=== PATIENT | female | born 1985 | race Caucasian/White ===

== ENCOUNTER → 2017-07-14 11:31 | Outpatient (CLI) | payer OTHER, SELFPAY ==
[2017-07-15 10:29] LABS: Insulin 20.1 mU/L (2.6-37.6)
[2017-07-17 12:06] LABS: Testosterone, % Free 1.97 % (0.50-2.80); Testosterone, Free 0.63 ng/dL (0.10-0.85); Testosterone, Total 32 ng/dL (8-48)
[2017-07-18 11:21] LABS: DHEA Sulfate 172.5 ug/dL (84.8-378.0)
== END ==
PROVIDERS: Family Provider Family Medicine; PCP Family Medicine; Visit Provider Family Medicine
DX: E28.2 Polycystic ovarian syndrome (principal)
CPT/HCPCS: 36415; 82627; 83525; 84402; 84403; 82626

== ENCOUNTER → 2018-03-20 11:56 | Outpatient (CLI) | payer OTHER, SELFPAY ==
[2018-03-20 15:32] LABS: AST(SGOT) 23 U/L (15-37); Alanine Aminotransfer ALT/SGPT 47 U/L (13-56); Albumin, Serum 3.9 g/dL (3.2-5.0); Alkaline Phosphatase 68 U/L (45-117); Anion Gap 10 (5-15); BUN 11 mg/dL (7-18); Calcium,Total 9.3 mg/dL (8.5-10.1); Chloride 103 mmol/L (98-107); Creatinine, Serum 0.91 mg/dL (0.55-1.02); EST Glomerular Filtration Rate 76 mL/min (>60); Est Glom Filt Rate - Afr Amer 92 mL/min (>60); Globulin 4.1 g/dL (2.2-4.2); Glucose 79 mg/dL (74-106); Potassium 3.8 mmol/L (3.5-5.1); Sodium Level 139 mmol/L (136-145); Vitamin D,25 Hydroxy 20.9 ng/mL (29.95-100.01)
== END ==
PROVIDERS: Family Provider Family Medicine; PCP Family Medicine; Visit Provider Family Medicine
DX: Z51.81 Encounter for therapeutic drug level monitoring (principal); E55.9 Vitamin D deficiency, unspecified
CPT/HCPCS: 36415; 80053; 82306

== ENCOUNTER → 2018-12-29 11:30 | Outpatient (CLI) | payer OTHER, SELFPAY ==
[2018-12-29 16:06] LABS: Vitamin D,25 Hydroxy 48.8 ng/mL (29.95-100.01)
[2018-12-29 16:13] LABS: AST(SGOT) 19 U/L (15-37); Alanine Aminotransfer ALT/SGPT 25 U/L (13-56); Albumin, Serum 3.9 g/dL (3.2-5.0); Alkaline Phosphatase 77 U/L (45-117); Anion Gap 7 (5-15); BUN 14 mg/dL (7-18); BUN/Creat Ratio 16.4 RATIO (10-20); Chloride 104 mmol/L (98-107); Creatinine, Serum 0.85 mg/dL (0.55-1.02); EST Glomerular Filtration Rate 82 mL/min (>60); Est Glom Filt Rate - Afr Amer 99 mL/min (>60); Free T3 2.7 pg/mL (2.18-3.98); Glucose 72 mg/dL (74-106); Potassium 4.1 mmol/L (3.5-5.1); Protein, Total 7.9 g/dL (6.4-8.2); Sodium Level 136 mmol/L (136-145); T4 Free Direct 1.13 ng/dL (0.76-1.46); Thyroid Stim Hormone (TSH) 2.85 uIU/mL (0.358-3.74)
[2019-01-01 14:07] LABS: Thyroid Peroxidase AB 161 IU/mL (0-34)
[2019-01-01 17:38] LABS: Thyroglobulin Antibody 4.8 IU/mL (0.0-0.9)
== END ==
PROVIDERS: Family Provider Family Medicine; PCP Family Medicine; Visit Provider Family Medicine
DX: Z51.81 Encounter for therapeutic drug level monitoring (principal); E55.9 Vitamin D deficiency, unspecified; E03.9 Hypothyroidism, unspecified; R53.83 Other fatigue
CPT/HCPCS: 36415; 80053; 82306; 84439; 84443; 84481; 86376; 86800

== ENCOUNTER → 2019-04-01 14:05 | Outpatient (CLI) | payer OTHER, SELFPAY ==
[2019-04-01 12:13] VITALS: BMI 42.7
[2019-04-01 14:08] LABS: Bacteria 0 SEEN /hpf (None Seen); Mucous, Urine 0 SEEN /hpf (<or=2+); Red Blood Cells-Urine 0 SEEN /hpf (0-5); Squamous Epithelial Cells - UA 0 SEEN /hpf (5-10); White Blood Cells 0 SEEN /hpf (0-5)
[2019-04-01 14:20] LABS: Color, Urine Yellow (Yellow); Glucose, Dipstick Normal (Normal); Ketone-Dipstick Negative (Negative); Leukocyte Esterase-Dipstick Negative /ul (Negative); Nitrite-Dipstick Negative (Negative); Occult Blood-Urine Negative /ul (Negative); Protein-Dipstick Negative (Negative); Urine Bilirubin Dipstick Negative (Negative); Urine Clarity Clear (Clear); Urine Urobilinogen Normal (Normal); Urine pH 6.5 (5.0 - 8.0)
== END ==
PROVIDERS: Family Provider Family Medicine; PCP Family Medicine; Referring Provider Physician Assistant Medical; Visit Provider Physician Assistant Medical
DX: R35.0 Frequency of micturition (principal)
CPT/HCPCS: 81001; 87086; 87088

== ENCOUNTER 2019-04-05 01:27 | Emergency (ER) | payer OTHER, SELFPAY ==
[2019-04-01 12:13] VITALS: BMI 42.7
[2019-04-05 01:29] VITALS: BP 181/127; PULSE 118; RESP 16; TEMP 36.7; O2SAT 98; BMI 46.8
--- NOTE | 2019-04-05 01:40 | ED.DCSUM_ITS ---
History of Present Illness Chief Complaint: Nausea/Vomiting/Diarrhea Informant: Patient Narrative: Stated she started having diarrhea yesterday multiple episodes throughout the day. She had vomiting since 1 PM today. Approximately 10 episodes of nonbloody emesis today. She has had sick contacts at work with similar symptoms. Denies any bad food exposures or recent antibiotics. No fevers or chills. She has no abdominal pain. No blood in her stool. Comes in for antibiotics and antieme tics. She is been using Imodium intermittently yesterday but none today. Past Medical History - Allergies and Home Meds Allergies/Adverse Reactions: Allergies No Known Allergies Allergy (Unverified 04/01/19 12:14) Primary Care Physician: Nadja Yadav DO [Primary Care Provider] - Prior records reviewed: Yes Past Medical History: - - PCOS Surgical History: no surgical history Lives: With Family Smoking Status: Never smoker Alcohol: None Drugs: None Review of Systems General: Denies: Chills, Fever, Sweats Eyes: Denies: Visual changes - bilaterally, Diplopia ENT: Denies: Rhinorrhea, Sore throat Cardiovascular: Denies: Chest pain, Palpitations Respiratory: Denies: Dyspnea, Cough, Dyspnea on exertion Gastrointestinal: Reports: Nausea, Vomiting, Diarrhea. Denies: Abdominal pain, Melena, Hematochezia Genitourinary: Denies: Dysuria, Hematuria, Frequency Musculoskeletal: Denies: Back pain, Extremity Pain Skin: Denies: Rash, Wounds Neurological: Denies: Headache, Weakness, Numbness Physical Exam Vital Signs/Narrative: Vital Signs Temp Pulse Resp BP Pulse Ox 04/05/19 01:29 98.1 F 118 H 16 181/127 H 98 General: Well nourished, Well developed, No Acute Distress Head: Normocephalic, Atraumatic Eyes: Perrl, EOMI ENT: Moist mucous membranes, No rhinorrhea Neck: Supple, Nontender Cardiovascular: Regular rhythm, No murmurs, Tachycardia. Negative for: Regular rate Respiratory: No distress, CTA bilaterally, Chest nontender Abdomen: Soft, Nontender, Nondistended, Normal bowel sounds Back: Nontender, Normal Inspection Extremities: Nontender, No edema Skin: Normal color, No rash Neurological: Alert, Oriented x3, Cranial nerves II-XII grossly intact, Normal Strength, Normal Sensation Psychological: Normal affect, Normal Mood Diagnostic/Tx/Re-eval - Medical Decision Making Patient abdomen completely benign. Given IV fluids. Given Zofran Imodium and electrolytes obtained. Patient felt much better after treatment. Lab work shows no major abnormalities. She tolerated p.o. challenge. Given Zofran for home. Will use Imodium. At this time I feel this is viral in nature and will have to run its course over the next few days. I do not feel she needs imaging or further lab work. She is nontoxic. We will follow-up as an outpatient ED Disposition - Plan for ED Patient: Disposition: Psychiatric Hospital or Unit Diagnosis: Vomiting and diarrhea Instructions: VOMITING AND DIARRHEA, Nonspecific (Adult) Prescriptions: Ondansetron [Zofran Odt] 4 mg PO Q8H PRN PRN #10 tab PRN Reason: Nausea Prescription Printed Referrals: Nadja Yadav DO [Primary Care Provider] -
[2019-04-05] MEDS: 0.9% Normal Saline 1,000 ML 1000 ML IV (01:55)
[2019-04-05] MEDS: Ondansetron 4 MG/2 ML Vial IV (01:55)
[2019-04-05 02:26] LABS: Anion Gap 9 (5-15); BUN 11 mg/dL (7-18); BUN/Creat Ratio 15.2 RATIO (10-20); Calcium,Total 9.1 mg/dL (8.5-10.1); Chloride 108 mmol/L (98-107); Creatinine, Serum 0.73 mg/dL (0.55-1.02); EST Glomerular Filtration Rate 99 mL/min (>60); Est Glom Filt Rate - Afr Amer 119 mL/min (>60); Estimated Creatinine Clearance 83.49 ml/min; Glucose 119 mg/dL (74-106); Potassium 3.8 mmol/L (3.5-5.1); Sodium Level 139 mmol/L (136-145)
[2019-04-05] MEDS: Loperamide 2 MG Capsule 4 MG PO (02:43)
[2019-04-05 03:02] VITALS: BP 174/107; PULSE 72; RESP 18
== END 2019-04-05 03:08 | disposition home or self-care (01) ==
PROVIDERS: Emergency Provider Emergency Medicine; Family Provider Family Medicine; PCP Family Medicine
DX: R11.2 Nausea with vomiting, unspecified (principal); R19.7 Diarrhea, unspecified
CPT/HCPCS: 80048; 99284; J7030; A4216; J2405

== ENCOUNTER → 2020-04-18 14:38 | Outpatient (CLI) | payer OTHER, SELFPAY ==
[2020-04-18 11:50] VITALS: BMI 48.7
== END ==
PROVIDERS: PCP Family Medicine; Referring Provider Physician Assistant Surgical; Visit Provider Physician Assistant Surgical
DX: Z20.828 Contact with and (suspected) exposure to other viral communicable diseases (principal)
CPT/HCPCS: 87635; U0003

== ENCOUNTER → 2020-04-21 18:05 | Outpatient (CLI) | payer OTHER, SELFPAY ==
[2020-04-18 11:50] VITALS: BMI 48.7
== END ==
PROVIDERS: PCP Family Medicine; Referring Provider Family Medicine; Visit Provider Family Medicine
DX: R05 Cough (principal); Z20.828 Contact with and (suspected) exposure to other viral communicable diseases
CPT/HCPCS: 87635; C9803; U0003

== ENCOUNTER → 2020-08-23 10:29 | Outpatient (CLI) | payer OTHER, SELFPAY ==
[2020-04-18 11:50] VITALS: BMI 48.7
[2020-08-23 11:10] LABS: Erythrocyte Sedimentation Rate 7 mm/hr (0-30)
[2020-08-23 11:13] LABS: Absolute Lymphocyte Count 2.38 X10^3/uL (0.83-4.51); Basophil# 0.07 X10^3/uL; Basophil% 0.5 % (0-1); Eosinophil# 0.06 X10^3/uL; Eosinophils% 0.4 % (0-5); Hematocrit 48.8 % (37-47); Hemoglobin 16.3 g/dL (12.0-15.0); Lymphocyte # 2.38 X10^3/ul (4.0); Lymphocyte % 16.6 % (19-41); Mean Corp Hgb Conc 33.4 g/dL (32-36); Mean Corpuscular Hgb 29.6 pg (27.0-32.0); Mean Corpuscular Volume 88.7 fL (81-99); Mean Platelet Vol. 10.7 fl (6.2-12.0); Monocyte# 0.81 X10^3/uL; Monocyte% 5.6 % (0-10); NRBC Flagged by Analyzer 0 % (0-5); Neutrophil # 10.96 X10^3/uL (2.7-7.7); Neutrophil % 76.3 % (47-70); Platelet Count 489 K/mm3 (150-450); RBC Distribution Width SD 39.3 fl (35.1-43.9); White Blood Count 14.4 K/mm3 (4.4-11.0)
[2020-08-23 11:19] LABS: AST(SGOT) 11 U/L (15-37); Alanine Aminotransfer ALT/SGPT 19 U/L (13-56); Alkaline Phosphatase 79 U/L (45-117); Anion Gap 5 (5-15); BUN 11 mg/dL (7-18); BUN/Creat Ratio 10.7 RATIO (10-20); CRP < 2.90 mg/L (0.0-3.0); Calcium,Total 9.3 mg/dL (8.5-10.1); Chloride 106 mmol/L (98-107); Creatinine, Serum 1.03 mg/dL (0.55-1.02); EST Glomerular Filtration Rate 65 mL/min (>60); Est Glom Filt Rate - Afr Amer 79 mL/min (>60); Globulin 4.2 g/dL (2.2-4.2); Glucose 100 mg/dL (74-106); Lipase 116 U/L (73-393); Protein, Total 8.2 g/dL (6.4-8.2); Sodium Level 138 mmol/L (136-145)
== END ==
PROVIDERS: PCP Family Medicine; Visit Provider Family Medicine
DX: R19.7 Diarrhea, unspecified (principal); R10.9 Unspecified abdominal pain
CPT/HCPCS: 36415; 80053; 83690; 85025; 85652; 86140

== ENCOUNTER 2020-08-27 10:21 | Emergency (ER) | payer OTHER, SELFPAY ==
[2020-04-18 11:50] VITALS: BMI 48.7
[2020-08-27 10:23] VITALS: BP 161/124; PULSE 98; RESP 17; TEMP 36.8; O2SAT 97; BMI 48.2
[2020-08-27 10:32] VITALS: BP 170/130; PULSE 92; RESP 18; O2SAT 97
--- NOTE | 2020-08-27 10:42 | ED.VIS.GEN ---
History of Present Illness Chief Complaint: Nausea/Vomiting Informant: Patient Onset: Days Context: Gradual Onset Timing: Waxes and wanes Current Severity: Moderate Maximum Severity: Moderate Narrative: Presents with a 1 week history of nausea, vomiting, diarrhea. She reports a constant aching sensation in her abdomen. She was seen by her PCP last week and had blood work obtained. She had a negative Covid test. She does state just prior to the onset of these symptoms she did get a Kenalog shot. She is had these in the past without difficulty. She is complaining of some chills but no fever. Her PCP prescribed omeprazole last week and the just added her on Flagyl 2 days ago due to concerns for possible bacterial diarrhea. Patient states today at work her heart rate was constantly 100 and sometimes fluctuating higher than that. She denies any prior abdominal surgeries. She denies possibility of . Past Medical History - Allergies and Home Meds Allergies/Adverse Reactions: Allergies No Known Allergies Allergy (Verified 08/27/20 10:23) Primary Care Physician: Nadja Yadav DO [Primary Care Provider] - Surgical History: no surgical history Smoking Status: Never smoker Review of Systems General: Reports: Chills. Denies: Fever Eyes: Denies: Visual changes - bilaterally ENT: Denies: Bilateral ear pain Cardiovascular: Denies: Chest pain, Palpitations Respiratory: Denies: Dyspnea, Cough Gastrointestinal: Reports: Abdominal pain, Nausea, Vomiting, Diarrhea Genitourinary: Denies: Dysuria Musculoskeletal: Denies: Swelling, Extremity Pain Skin: Denies: Rash Neurological: Reports: Headache Endocrine: Denies: Polyuria, Polydipsia Hematologic: Denies: Easy bruising, Easy bleeding Allergy: Denies: Uticaria Physical Exam Vital Signs/Narrative: Vital Signs Temp Pulse Resp BP Pulse Ox 08/27/20 10:32 92 18 170/130 H 97 08/27/20 10:23 98.3 F 98 17 161/124 H 97 Inital Vital Signs reviewed: Yes General: Well nourished, Well developed Head: Normocephalic ENT: No rhinorrhea Neck: Supple Cardiovascular: Regular rate, Regular rhythm Respiratory: No distress, CTA bilaterally Abdomen: Soft, Nontender, Hypoactive bowel sounds Extremities: Nontender Skin: Normal color Neurological: Alert, Oriented x3 Psychological: Normal affect Diagnostic/Tx/Re-eval Laboratory Results 08/27/20 08/27/20 08/27/20 11:00 11:00 11:00 WBC 14.5 H RBC 5.26 Hgb 15.8 H Hct 46.0 MCV 87.5 MCH 30.0 MCHC 34.3 RDW Std Deviation 38.2 RDW Coeff of Sandra 11.9 Plt Count 412 MPV 10.7 Immature Gran % (Auto) 0.600 Neut % (Auto) 77.7 H Lymph % (Auto) 14.0 L [place] % (Auto) 6.7 Eos % (Auto) 0.4 Baso % (Auto) 0.6 Absolute Neuts (auto) 11.3 H Absolute Lymphs (auto) 2.04 Nucleated RBC % 0 Sodium 137 Potassium 3.7 Chloride 107 Carbon Dioxide 25.0 Anion Gap 5 BUN 10 Creatinine 0.98 Estim Creat Clear Calc 61.61 Est GFR (MDRD) Af Amer 84 Est GFR (MDRD) Non-Af 69 BUN/Creatinine Ratio 10.2 Glucose 88 Calcium 9.1 Total Bilirubin 0.60 Direct Bilirubin 0.19 AST 8 L ALT 21 Alkaline Phosphatase 76 Total Protein 7.9 Albumin 3.8 Globulin 4.1 Lipase 148 Serum , Qual NEGATIVE Urine Color Urine Clarity Urine pH Ur Specific [place] Urine Protein Urine Glucose (UA) Urine Ketones Urine Occult Blood Urine Nitrite Urine Bilirubin Urine Urobilinogen Ur Leukocyte Esterase Urine RBC Urine WBC Ur Squamous Epith Cells Urine Bacteria Urine Mucus 08/27/20 11:00 WBC RBC Hgb Hct MCV MCH MCHC RDW Std Deviation RDW Coeff of Sandra Plt Count MPV Immature Gran % (Auto) Neut % (Auto) Lymph % (Auto) [place] % (Auto) Eos % (Auto) Baso % (Auto) Absolute Neuts (auto) Absolute Lymphs (auto) Nucleated RBC % Sodium Potassium Chloride Carbon Dioxide Anion Gap BUN Creatinine Estim Creat Clear Calc Est GFR (MDRD) Af Amer Est GFR (MDRD) Non-Af BUN/Creatinine Ratio Glucose Calcium Total Bilirubin Direct Bilirubin AST ALT Alkaline Phosphatase Total Protein Albumin Globulin Lipase Serum , Qual Urine Color Yellow Urine Clarity Sl. Cloudy Urine pH 6.0 Ur Specific [place] 1.010 Urine Protein Negative Urine Glucose (UA) Normal Urine Ketones Negative Urine Occult Blood 10 H Urine Nitrite Negative Urine Bilirubin Negative Urine Urobilinogen Normal Ur Leukocyte Esterase 100 H Urine RBC 0 SEEN Urine WBC 0-5 SEEN Ur Squamous Epith Cells 0-5 SEEN Urine Bacteria 0 SEEN Urine Mucus 0 SEEN - Medical Decision Making Patient was given Zofran and Bentyl along with a liter of IV fluids. On repeat evaluation symptoms are improved. White count remains elevated at 14, similar to labs last week. This again may be secondary to her recent Kenalog injection. Renal function is actually improved when compared to prior. Urinalysis is clear. test negative. Covid PCR was sent and is still pending at this time. Patient was advised if it is positive she would receive a phone call. At this time we will discharge patient with prescription for Zofran and Bentyl. She will continue the Flagyl that her PCP had written for her. She was not able to provide a stool sample while here. ED Disposition - Plan for ED Patient: Disposition: Home or Assisted Living Diagnosis: Gastroenteritis Instructions: ED Gastroenteritis, Bacterial (Adult) Prescriptions: Dicyclomine HCl [Bentyl] 20 mg PO TIDAC PRN #20 capsule PRN Reason: Pain Score 4-5 Transmission Status: [facility] Ondansetron [Zofran Odt] 4 mg PO Q8H PRN PRN #10 tablet PRN Reason: Nausea Transmission Status: Pending to [facility] Referrals: Nadja Yadav DO [Primary Care Provider] - 1 Week
[2020-08-27] MEDS: Dicyclomine 10 MG Capsule 20 MG PO (11:11)
[2020-08-27] MEDS: 0.9% Normal Saline 1,000 ML 1000 ML IV (11:12)
[2020-08-27] MEDS: Ondansetron 4 MG/2 ML Vial IV (11:13)
[2020-08-27 11:15] LABS: Bacteria 0 SEEN /hpf (None Seen); Mucous, Urine 0 SEEN /hpf (<or=2+); Red Blood Cells-Urine 0 SEEN /hpf (0-5)
[2020-08-27 11:16] LABS: Color, Urine Yellow (Yellow); Glucose, Dipstick Normal (Normal); Ketone-Dipstick Negative (Negative); Leukocyte Esterase-Dipstick 100 /ul (Negative); Nitrite-Dipstick Negative (Negative); Occult Blood-Urine 10 /ul (Negative); Protein-Dipstick Negative (Negative); Urine Bilirubin Dipstick Negative (Negative); Urine Clarity Sl. Cloudy (Clear); Urine Urobilinogen Normal (Normal)
[2020-08-27 11:17] LABS: Absolute Lymphocyte Count 2.04 X10^3/uL (0.83-4.51); Absolute Neutrophil Count 11.3 X10^3/uL (2.0-7.7); Basophil# 0.08 X10^3/uL; Basophil% 0.6 % (0-1); Eosinophil# 0.06 X10^3/uL; Eosinophils% 0.4 % (0-5); Hemoglobin 15.8 g/dL (12.0-15.0); Lymphocyte # 2.04 X10^3/ul (4.0); Mean Corp Hgb Conc 34.3 g/dL (32-36); Mean Corpuscular Volume 87.5 fL (81-99); Mean Platelet Vol. 10.7 fl (6.2-12.0); Monocyte# 0.97 X10^3/uL; Monocyte% 6.7 % (0-10); NRBC Flagged by Analyzer 0 % (0-5); Neutrophil # 11.29 X10^3/uL (2.7-7.7); Neutrophil % 77.7 % (47-70); Platelet Count 412 K/mm3 (150-450); RBC Distribution Width CV 11.9 % (11.6-14.6); RBC Distribution Width SD 38.2 fl (35.1-43.9); Red Blood Count 5.26 M/mm3 (4.2-5.4); White Blood Count 14.5 K/mm3 (4.4-11.0)
[2020-08-27 11:22] LABS: Squamous Epithelial Cells - UA 0-5 SEEN /hpf (5-10); White Blood Cells 0-5 SEEN /hpf (0-5)
[2020-08-27 11:34] LABS: AST(SGOT) 8 U/L (15-37); Alanine Aminotransfer ALT/SGPT 21 U/L (13-56); Albumin, Serum 3.8 g/dL (3.2-5.0); Alkaline Phosphatase 76 U/L (45-117); Anion Gap 5 (5-15); BUN 10 mg/dL (7-18); BUN/Creat Ratio 10.2 RATIO (10-20); Bilirubin, Direct 0.19 mg/dL (0.00-0.30); Calcium,Total 9.1 mg/dL (8.5-10.1); Chloride 107 mmol/L (98-107); Creatinine, Serum 0.98 mg/dL (0.55-1.02); EST Glomerular Filtration Rate 69 mL/min (>60); Est Glom Filt Rate - Afr Amer 84 mL/min (>60); Estimated Creatinine Clearance 61.61 ml/min; Globulin 4.1 g/dL (2.2-4.2); Glucose 88 mg/dL (74-106); Lipase 148 U/L (73-393); Potassium 3.7 mmol/L (3.5-5.1); Protein, Total 7.9 g/dL (6.4-8.2); Sodium Level 137 mmol/L (136-145)
[2020-08-27 11:35] LABS: Internal QC Validated? YES +Cl - CLEAR BKGD; Pregnancy, Serum, hCG Quali. NEGATIVE Negative
[2020-08-27 13:11] VITALS: BP 147/102; PULSE 74; RESP 16; O2SAT 100
[2020-08-27] MEDS: 0.9% Normal Saline 1,000 ML 150 ML IV (13:11)
[2020-08-27 13:46] VITALS: BP 161/106; PULSE 84; RESP 16; O2SAT 100
== END 2020-08-27 13:51 | disposition home or self-care (01) ==
PROVIDERS: Emergency Provider Emergency Medicine; PCP Family Medicine
DX: K52.9 Noninfective gastroenteritis and colitis, unspecified (principal)
CPT/HCPCS: 80048; 80076; 81001; 83690; 84703; 85025; 87635; 96361; 96374; 99284; J7030; A4216; J2405; U0002

== ENCOUNTER → 2020-12-30 13:27 | Outpatient (CLI) | payer OTHER, SELFPAY ==
[2020-12-06 08:38] VITALS: BMI 48.2
[2020-12-30 13:47] LABS: Absolute Lymphocyte Count 1.94 X10^3/uL (0.83-4.51); Absolute Neutrophil Count 9.4 X10^3/uL (2.0-7.7); Basophil# 0.05 X10^3/uL; Basophil% 0.4 % (0-1); Eosinophil# 0.05 X10^3/uL; Eosinophils% 0.4 % (0-5); Hematocrit 47.7 % (37-47); Hemoglobin 15.8 g/dL (12.0-15.0); Lymphocyte # 1.94 X10^3/ul (0.83-4.51); Lymphocyte % 15.9 % (19-41); Mean Corp Hgb Conc 33.1 g/dL (32-36); Mean Corpuscular Hgb 29.6 pg (27.0-32.0); Mean Corpuscular Volume 89.3 fL (81-99); Mean Platelet Vol. 10.9 fl (6.2-12.0); Monocyte# 0.63 X10^3/uL; Monocyte% 5.2 % (0-10); NRBC Flagged by Analyzer 0 % (0-5); Neutrophil # 9.42 X10^3/uL (2.7-7.7); Neutrophil % 77.4 % (47-70); Platelet Count 390 K/mm3 (150-450); RBC Distribution Width SD 39.4 fl (35.1-43.9); Red Blood Count 5.34 M/mm3 (4.2-5.4); White Blood Count 12.2 K/mm3 (4.4-11.0)
== END ==
PROVIDERS: PCP Family Medicine; Referring Provider Ophthalmology; Visit Provider Ophthalmology
DX: H35.61 Retinal hemorrhage, right eye (principal)
CPT/HCPCS: 36415; 85025

== ENCOUNTER 2021-03-14 18:43 | Emergency (ER) | payer OTHER, SELFPAY ==
[2021-03-14 18:44] VITALS: BP 166/115; PULSE 116; RESP 18; TEMP 36.4; O2SAT 99; BMI 49.9
--- NOTE | 2021-03-14 19:14 | ED.RN ---
PT ALREADY RECEIVED [employer] VACCINES
--- NOTE | 2021-03-14 19:39 | EX.ED.DYSGE1 ---
HPI History of Present Illness Chief Complaint: Vision Prob Informant: patient and family Narrative Narrative: 35-year-old female states that around 4:00 this afternoon she began to have squiggly lines in her vision that were of various colors. She states that they have improved and she now has a frontal headache. She denies any arm leg or speech symptoms. Patient has been working on getting her blood pressure down.No nausea or vomiting. [facility] Medical History GERD (gastroesophageal reflux disease) Hypertension Home Medications cetirizine 10 mg capsule 10 mg PO DAILY 04/01/19 [History Last Taken Unknown] metformin 500 mg tablet 500 mg PO BID #60 tab 04/01/19 [History Last Taken Unknown] spironolactone 25 mg tablet 25 mg PO DAILY #60 tab 04/01/19 [History Last Taken Unknown] metoprolol succinate 100 mg PO DAILY 03/14/21 [History Last Taken Unknown] Allergy/AdvReac Type Severity Reaction Status Date / Time No Known Allergies Allergy Verified 03/14/21 18:47 Social History (Updated 03/14/21 @ 19:[address] Kyle Lopez DO) Smoking Status: Never smoker substance use type: does not use ROS ROS ED Constitutional Constitutional ED: Denies chills or weight loss Eyes Eyes: Reports other Details: Visual disturbance ; Denies blurry vision, change in vision or diplopia ENT ENT ED: Denies ear pain, rhinorrhea or sore throat Cardiovascular Cardiovascular: Denies chest pain, orthopnea, palpitations or racing heartbeat Respiratory/Chest Respiratory/Chest: Denies cough, dyspnea or orthopnea Gastrointestinal Gastrointestinal: Denies abdominal pain, diarrhea, nausea or vomiting Genitourinary Genitourinary ED: Denies dysuria, hematuria or urinary frequency Musculoskeletal Musculoskeletal: Denies arthralgias or myalgias Integumentary Denies abscess or rash Neurologic Neurologic: Reports headache(s); Denies weakness Psychiatric Psychiatric: Denies anxiety, depression, suicidal ideation or suicidal thoughts Endocrine Endocrinology: Denies polydipsia, polyphagia or polyuria Allergic/Immunologic Allergic/Immunologic ED: Denies mouth swelling, tongue swelling or urticaria EXAM Physical Exam Const Vital Signs: 03/14/21 18:44 Temperature 97.5 F L Temperature Source Temporal Pulse Rate 116 H Respiratory Rate 18 Blood Pressure 166/115 H Blood Pressure Mean 132 Pulse Ox 99 Oxygen Delivery Method Room Air Positive well nourished, well developed and obese General Appearance ED: well developed Nutritional Appearance: obese HEENT Reports normocephalic, head/scalp atraumatic, TM's clear and moist mucous membranes Negative for trauma Tympanic Membrane ED: Yes TM's clear Eyes PERRL and EOMs intact bilaterally Eyes Narrative: No photophobia Neck no lymphadenopathy, supple and no JVD Resp normal respiratory effort and clear to auscultation bilaterally Cardio regular rate, regular rhythm and no murmurs GI normal to inspection, nondistended, normoactive bowel sounds and non-tender Palpation: soft Back/Spine no CVA tenderness and normal ROM Extremity normal to inspection General Extremety ED: Negative for edema General Extremity: Negative for edema Neuro oriented x3 and CN's II-XII intact bilaterally Sensorium / Orientation: alert Motor Exam: strength 5/5 throughout Psych mental status grossly normal Mood & Affect: Negative for depressed or tearful Skin no rashes or lesions noted and no wounds MDM MDM MDM Narrative Medical decision making narrative: Patient received Toradol Reglan Benadryl. Repeat exam finds the patient to be improved. Patient will be discharged home. She has an appointment upcoming with her doctor and they should talk about her headache. Discharge Plan Triage Chief Complaint: Vision Prob ED Provider: Kyle Lopez Dx/Rx/DC Orders Clinical Impression: Migraine Instructions: ED, Migraine (Classical) Prescriptions: No Action spironolactone 25 mg tablet 25 mg PO DAILY Qty: 60 RF: 0 metformin 500 mg tablet 500 mg PO BID Qty: 60 RF: 0 All Day Allergy (cetirizine) 10 mg capsule 10 mg PO DAILY RF: 0 metoprolol succinate 25 mg tablet extended release 24 hr 100 mg PO DAILY RF: 0 Primary Care Provider: Nadja Yadav Referrals: Nadja Yadav DO [Primary Care Provider] - [facility] appointment Disposition Disposition: Home, Self Care
[2021-03-14] MEDS: DiphenhydrAMINE 50 MG/ML Syringe 25 MG IV (20:17)
[2021-03-14] MEDS: Ketorolac 15 MG/ML Vial IV (20:17)
[2021-03-14] MEDS: Metoclopramide 10 MG/2 ML Vial IV (20:17)
[2021-03-14 21:12] VITALS: BP 146/90; PULSE 98; RESP 15; O2SAT 98
== END 2021-03-14 21:14 | disposition home or self-care (01) ==
PROVIDERS: Emergency Provider Emergency Medicine; PCP Family Medicine
DX: G43.909 Migraine, unspecified, not intractable, without status migrainosus (principal); E66.9 Obesity, unspecified; I10 Essential (primary) hypertension; Z79.84 Long term (current) use of oral hypoglycemic drugs; Z79.899 Other long term (current) drug therapy
CPT/HCPCS: 96374; 96375; 99284; A4216

== ENCOUNTER → 2021-03-31 13:54 | Outpatient (CLI) | payer OTHER, SELFPAY | PROVIDERS: PCP Family Medicine; Referring Provider Family Medicine; Visit Provider Family Medicine | DX: R00.0 Tachycardia, unspecified (principal); R00.2 Palpitations | CPT/HCPCS: 93225; 93226 ==

== ENCOUNTER 2021-07-22 13:43 | Outpatient (CLI) | payer OTHER, SELFPAY ==
--- NOTE | 2021-07-22 13:49 | ECHOCS_ITS ---
Reason For Study: ARRHYTHMIA Procedure This was a 2D Doppler, Color Flow transthoracic echocardiogram. The study was technically difficult. Contrast injection was performed. Exam performed in department. Left Ventricle Normal LV size. Left ventricular systolic function is normal. The estimated ejection fraction is 55 %. Normal diastology for age. No regional wall motion abnormalities noted. Right Ventricle Normal RV size. Normal systolic function. Atria Normal left atrium. Normal right atrium. Mitral Valve Normal mitral valve. Tricuspid Valve Normal tricuspid valve. Mild (1+) tricuspid valve insufficiency. Pulmonary artery systolic pressure is 32 mmHg. Aortic Valve Trisinus/trileaflet aortic valve. Pulmonic Valve Normal pulmonic valve. Great Vessels Normal aortic root. The pulmonary artery is normal size. Normal inferior vena cava. Pericardium/Pleural No pericardial effusion. Medication 22 gauge I.V. with prn adaptor inserted into right arm. Diluted definity 1.5ml given slow IV push to enhance endocardial definition. MMode/2D Measurements & Calculations LVIDd: 4.3 cm IVSd: 0.85 cm Ao root diam: 2.9 cm LVIDs: 2.7 cm LVPWd: 0.88 cm RVDd: 3.5 cm FS: 38.0 % LAV(MOD-bp): 21.0 ml LVAd ap4: 29.2 cm2 LVAd ap2: 24.8 cm2 LAV(MOD-bp) Indexed: 9.8 ml/m2 LVLd ap4: 7.5 cm LVLd ap2: 7.3 cm LAV(MOD-sp2): 19.7 ml EDV(MOD-sp4): 95.0 ml EDV(MOD-sp2): 72.1 ml LAV(MOD-sp4): 21.8 ml EDV(sp4-el): 97.2 ml EDV(sp2-el): 71.8 ml LVAs ap4: 16.0 cm2 LVAs ap2: 13.7 cm2 LVLs ap4: 6.1 cm LVLs ap2: 5.7 cm ESV(MOD-sp4): 35.5 ml ESV(MOD-sp2): 27.4 ml ESV(sp4-el): 35.5 ml ESV(sp2-el): 28.1 ml EF(MOD-sp4): 62.6 % EF(MOD-sp2): 62.0 % EF(sp4-el): 63.5 % SV(MOD-sp4): 59.5 ml SV(MOD-sp2): 44.7 ml SV(sp4-el): 61.7 ml LA A4 area: 10.6 cm2 LA dimension(2D): 3.3 cm RA A4 area: 10.7 cm2 Doppler Measurements & Calculations MV E max buzz: 92.2 cm/sec Lat Peak E' Buzz: 16.4 cm/sec Med Peak E' Buzz: 12.9 cm/sec MV A max buzz: 68.4 cm/sec E/E' lat: 5.6 E/E' med: 7.1 MV E/A: 1.3 Ao V2 max: 191.6 cm/sec LV V1 max: 127.1 cm/sec PA V2 max: 126.0 cm/sec Ao max P.7 mmHg LV V1 max P.5 mmHg TR max buzz: 264.2 cm/sec TR max P.9 mmHg ECHO/Echo Complete W/ Contrast Interpretation Summary Normal LV size. Left ventricular systolic function is normal. The estimated ejection fraction is 55 %. Pulmonary artery systolic pressure is 32 mmHg. Contrast injection was performed. Ordering Physician: Forrest Ge Referring Physician: URSZULA CAMPOS Performed By: Summer Connell, ANMOL, RVT
== END 2021-07-22 23:59 | disposition home or self-care (01) ==
LOC: CVS 13:49
PROVIDERS: PCP Family Medicine; Referring Provider Internal Medicine Cardiovascular Disease; Visit Provider Internal Medicine Cardiovascular Disease
DX: I10 Essential (primary) hypertension (principal)
CPT/HCPCS: 93306; Q9957; A4216; C8929

== ENCOUNTER 2021-07-23 07:18 | Outpatient (CLI) | payer OTHER, SELFPAY ==
[2021-07-23 08:14] LABS: Anion Gap 5 (5-15); BUN 15 mg/dL (7-18); BUN/Creat Ratio 17.8 RATIO (10-20); Calcium,Total 8.7 mg/dL (8.5-10.1); Chloride 107 mmol/L (98-107); Creatinine, Serum 0.84 mg/dL (0.55-1.02); EST Glomerular Filtration Rate 82 mL/min (>60); Est Glom Filt Rate - Afr Amer 99 mL/min (>60); Free T3 2.7 pg/mL (2.18-3.98); Glucose 106 mg/dL (74-106); Sodium Level 139 mmol/L (136-145); Thyroid Stim Hormone (TSH) 1.89 uIU/mL (0.358-3.74)
[2021-07-30 17:07] LABS: Aldosterone, Serum 12.1 ng/dL (0.0-30.0)
[2021-07-30 18:20] LABS: Renin, Plasma 0.227 ng/mL/hr (0.167-5.380)
== END 2021-07-23 23:59 | disposition home or self-care (01) ==
LOC: LAB 07:20
PROVIDERS: PCP Family Medicine; Referring Provider Internal Medicine Cardiovascular Disease; Visit Provider Internal Medicine Cardiovascular Disease
DX: E03.9 Hypothyroidism, unspecified (principal)
CPT/HCPCS: 36415; 80048; 82088; 84244; 84439; 84443; 84481

== ENCOUNTER → 2021-11-24 | Outpatient (CLI) | payer OTHER, SELFPAY ==
[2021-11-24 11:54] LABS: ALB/GLOB Ratio 0.9 RATIO (0.9-2.4); AST(SGOT) 18 U/L (15-37); Alanine Aminotransfer ALT/SGPT 22 U/L (13-56); Albumin, Serum 3.4 g/dL (3.2-5.0); Alkaline Phosphatase 58 U/L (45-117); Anion Gap 4 (5-15); BUN 12 mg/dL (7-18); BUN/Creat Ratio 14.8 RATIO (10-20); Calcium,Total 9.6 mg/dL (8.5-10.1); Chloride 108 mmol/L (98-107); Creatinine, Serum 0.81 mg/dL (0.55-1.02); EST Glomerular Filtration Rate 86 mL/min (>60); Est Glom Filt Rate - Afr Amer 104 mL/min (>60); Globulin 3.7 g/dL (2.2-4.2); Glucose 113 mg/dL (74-106); Potassium 3.9 mmol/L (3.5-5.1); Protein, Total 7.1 g/dL (6.4-8.2); Sodium Level 139 mmol/L (136-145)
== END | disposition home or self-care (01) ==
LOC: LAB 10:38
PROVIDERS: PCP Family Medicine; Visit Provider Family Medicine
DX: R20.2 Paresthesia of skin (principal)
CPT/HCPCS: 36415; 80053; 83735

== ENCOUNTER → 2022-02-04 | Outpatient (CLI) | payer OTHER, SELFPAY ==
[2022-02-04 17:16] LABS: Free T3 2.6 pg/mL (2.18-3.98); T4 Free Direct 1.05 ng/dL (0.76-1.46); Thyroid Stim Hormone (TSH) 4.72 uIU/mL (0.358-3.74)
== END | disposition home or self-care (01) ==
LOC: LAB 16:19
PROVIDERS: PCP Family Medicine; Visit Provider Family Medicine
DX: E03.9 Hypothyroidism, unspecified (principal)
CPT/HCPCS: 36415; 84439; 84443; 84481

== ENCOUNTER → 2022-05-20 | Outpatient (CLI) | payer OTHER, SELFPAY ==
[2022-05-20 12:21] LABS: Absolute Neutrophil Count 7.7 X10^3/uL (2.0-7.7); Basophil# 0.08 X10^3/uL; Basophil% 0.7 % (0-1); Eosinophil# 0.35 X10^3/uL; Eosinophils% 2.9 % (0-5); Hematocrit 41.2 % (37-47); Hemoglobin 14.4 g/dL (12.0-15.0); Lymphocyte % 25.4 % (19-41); Mean Corpuscular Hgb 31.2 pg (27.0-32.0); Mean Corpuscular Volume 89.2 fL (81-99); Mean Platelet Vol. 11.5 fl (6.2-12.0); Monocyte% 7.4 % (0-10); NRBC Flagged by Analyzer 0 % (0-5); Neutrophil # 7.73 X10^3/uL (2.7-7.7); Neutrophil % 63.3 % (47-70); Platelet Count 361 K/mm3 (150-450); RBC Distribution Width CV 12.3 % (11.6-14.6); RBC Distribution Width SD 40.4 fl (35.1-43.9); Red Blood Count 4.62 M/mm3 (4.2-5.4); White Blood Count 12.2 K/mm3 (4.4-11.0)
[2022-05-20 12:38] LABS: ALB/GLOB Ratio 0.9 RATIO (0.9-2.4); AST(SGOT) 17 U/L (15-37); Alanine Aminotransfer ALT/SGPT 31 U/L (13-56); Albumin, Serum 3.6 g/dL (3.2-5.0); Alkaline Phosphatase 64 U/L (45-117); Anion Gap 6 (5-15); BUN 13 mg/dL (7-18); BUN/Creat Ratio 13.6 RATIO (10-20); Calcium,Total 9.1 mg/dL (8.5-10.1); Chloride 107 mmol/L (98-107); Cholesterol 174 mg/dL (200); Creatinine, Serum 0.96 mg/dL (0.55-1.02); EST Glomerular Filtration Rate 70 mL/min (>60); Est Glom Filt Rate - Afr Amer 85 mL/min (>60); Free T3 2.3 pg/mL (2.18-3.98); Globulin 3.8 g/dL (2.2-4.2); Glucose 104 mg/dL (74-106); High Density Lipoprotein 56 mg/dL; Potassium 3.8 mmol/L (3.5-5.1); Protein, Total 7.4 g/dL (6.4-8.2); Sodium Level 139 mmol/L (136-145); T4 Free Direct 1.09 ng/dL (0.76-1.46); Thyroid Stim Hormone (TSH) 3.42 uIU/mL (0.358-3.74); Triglycerides 152 mg/dL; Very Low Density Lipoprotein 30 mg/dL (5-40)
== END | disposition home or self-care (01) ==
LOC: BFHLAB 08:57
PROVIDERS: PCP Family Medicine; Visit Provider Family Medicine
DX: E03.9 Hypothyroidism, unspecified (principal); E78.5 Hyperlipidemia, unspecified; Z51.81 Encounter for therapeutic drug level monitoring
CPT/HCPCS: 36415; 80053; 80061; 84439; 84443; 84481; 85025

== ENCOUNTER 2023-04-28 12:54 | Emergency (ER) | payer OTHER, SELFPAY ==
[2023-04-28 12:57] VITALS: BP 150/101; PULSE 107; RESP 14; TEMP 36.8; O2SAT 99; BMI 53.1
--- NOTE | 2023-04-28 13:14 | RAD_ITS ---
STUDY: X-RAY CHEST REASON FOR EXAM: Female, 37 years old. Chest pain . Palpitation. TECHNIQUE: Single AP portable view of the chest. COMPARISON: None. FINDINGS: The lungs are clear and expanded. Scattered calcified granulomas. There is no demonstrated pleural abnormality. Normal size heart. Normal mediastinum and quita. Normal visualized pulmonary arteries. Normal visualized aortic arch and descending thoracic aorta. Normal visualized thoracic spine. Normal visualized ribs, clavicles, and shoulders. There is no demonstrated abnormality of the visualized soft tissue structures of the upper abdomen. RAD/Chest 1 View (Portable) IMPRESSION: Normal x-ray examination of the chest. Electronically Signed: Ketan Crane MD at 13:33 EST ,
[2023-04-28 13:39] LABS: Absolute Neutrophil Count 6.2 X10^3/uL (2.0-7.7); Basophil# 0.06 X10^3/uL; Basophil% 0.6 % (0-1); Eosinophil# 0.23 X10^3/uL; Eosinophils% 2.4 % (0-5); Lymphocyte % 24.2 % (19-41); Mean Corp Hgb Conc 33.3 g/dL (32-36); Mean Corpuscular Hgb 29.1 pg (27.0-32.0); Mean Corpuscular Volume 87.2 fL (81-99); Mean Platelet Vol. 10.8 fl (6.2-12.0); Monocyte# 0.68 X10^3/uL; Monocyte% 7.1 % (0-10); NRBC Flagged by Analyzer 0 % (0-5); Neutrophil % 65.2 % (47-70); Platelet Count 365 K/mm3 (150-450); RBC Distribution Width CV 12.2 % (11.6-14.6); Red Blood Count 5.16 M/mm3 (4.2-5.4); White Blood Count 9.5 K/mm3 (4.4-11.0)
[2023-04-28 13:49] LABS: Anion Gap 3 (5-15); BUN 12 mg/dL (7-18); BUN/Creat Ratio 12.9 RATIO (10-20); Calcium,Total 9.6 mg/dL (8.5-10.1); Chloride 108 mmol/L (98-107); Creatinine, Serum 0.93 mg/dL (0.55-1.02); EST Glomerular Filtration Rate 72 mL/min (>60); Est Glom Filt Rate - Afr Amer 87 mL/min (>60); Estimated Creatinine Clearance 63.11 ml/min; Glucose 92 mg/dL (74-106); Sodium Level 137 mmol/L (136-145); Troponin-I HS (w/2H Reflex) 8 pg/mL (3.0-54.0)
--- NOTE | 2023-04-28 14:00 | ED.RN ---
NO OLD EKG
[2023-04-28 14:08] VITALS: PULSE 91; O2SAT 98
[2023-04-28 15:29] LABS: Reflex Troponin-HS? (from REC) Y
[2023-04-28 16:26] LABS: Troponin-I HS 10 pg/mL (3.0-54.0)
--- NOTE | 2023-04-28 16:45 | EX.ED.DYSGE1 ---
HPI History of Present Illness Chief Complaint: Palpitations Narrative Narrative: 7-year-old female presenting with palpitations. She states she has a history of A-fib in the past which was presumably started over COVID vaccine. She had a echocardiogram and a Holter monitor and she followed up with Dr. Ge. Patient states today she darted to have palpitations and noted that her heart rate was about 200 on her Apple Watch. She took an EKG which read A-fib but her heart rate was slower. He denies any chest pain. No history of DVT/PE and no risk factors currently. Patient denies fever, chills, cough. She has been otherwise healthy. [facility] Medical History Allergic rhinitis Asthma due to seasonal allergies Contact with or suspected exposure to other viral communicable disease COVID-19 Essential hypertension GERD (gastroesophageal reflux disease) HTN (hypertension) Polycystic ovarian syndrome Home Medications metformin 500 mg tablet 500 mg PO BID #60 tabs 04/01/19 [History Last Taken Unknown] spironolactone 25 mg tablet 25 mg PO DAILY #60 tabs 04/01/19 [History Last Taken Unknown] albuterol sulfate 90 mcg/actuation aerosol inhaler (Ventolin HFA) 2 puff inhalation Q6H PRN 05/26/21 [History Last Taken Unknown] levothyroxine 25 mcg tablet 25 mcg PO DAILY 05/26/21 [History Last Taken Unknown] metoprolol succinate 100 mg tablet,extended release 24 hr 100 mg PO DAILY 05/27/21 [History Last Taken Unknown] cetirizine 10 mg tablet (Zyrtec) 10 mg PO DAILY PRN 07/31/21 [History Last Taken Unknown] losartan 100 mg tablet 100 mg PO DAILY #90 tabs 07/05/22 [Rx Last Taken Unknown] amoxicillin 500 mg tablet 500 mg PO Q12H #20 tabs 10/17/22 [Rx Last Taken Unknown] Allergy/AdvReac Type Severity Reaction Status Date / Time No Known Allergies Allergy Verified 04/28/23 12:57 Family History Mother Anemia Hypertension Thyroid disorder Grandfather CAD (coronary artery disease) Social History Smoking Status: Never smoker alcohol intake: never substance use type: does not use ROS ROS ED Constitutional Constitutional ED: Denies chills, fever(s) or sweats Eyes Eyes: Denies blurry vision or change in vision ENT ENT ED: Denies ear pain or sore throat Cardiovascular Cardiovascular: Reports palpitations and racing heartbeat; Denies chest pain Respiratory/Chest Respiratory/Chest: Denies cough, dyspnea or sputum Gastrointestinal Gastrointestinal: Denies abdominal pain, constipation, diarrhea, nausea or vomiting Genitourinary Genitourinary ED: Denies dysuria, hematuria or urinary frequency Musculoskeletal Musculoskeletal: Denies arthralgias, myalgias or neck pain Integumentary Denies abscess, Abrasions or rash Neurologic Neurologic: Denies headache(s), paresthesias or weakness Psychiatric Psychiatric: Denies anxiety, depression, suicidal ideation or suicidal thoughts Endocrine Endocrinology: Denies polydipsia or polyuria EXAM Physical Exam Const Vital Signs: 04/28/23 12:57 04/28/23 14:08 04/28/23 15:47 Temperature 98.2 F Temperature Source Temporal Pulse Rate 107 H 91 Respiratory Rate 14 Respiratory Effort Blood Pressure 150/101 H Blood Pressure Mean 117 Pulse Ox 99 98 Oxygen Delivery Method Room Air Room Air Room Air 04/28/23 15:47 04/28/23 17:40 Temperature Temperature Source Pulse Rate 81 Respiratory Rate 18 Respiratory Effort Normal Non-Labored Blood Pressure 134/81 H Blood Pressure Mean 98 Pulse Ox 97 Oxygen Delivery Method Room Air Positive well nourished General Appearance ED: NAD; Negative for pallor HEENT Reports moist mucous membranes Eyes PERRL and EOMs intact bilaterally Neck no lymphadenopathy Chest Wall inspection of chest normal Resp normal respiratory effort and clear to auscultation bilaterally Auscultation: Negative for rales, rhonchi or wheezes Cardio regular rate and regular rhythm GI normal to inspection, nondistended, normoactive bowel sounds Neuro oriented x3 and CN's II-XII intact bilaterally Sensorium / Orientation: alert Psych mental status grossly normal Skin no rashes or lesions noted General Skin Exam: Negative for jaundice or pallor MDM MDM MDM Narrative Medical decision making narrative: Presenting with palpitation. She states she had a heart rate as high as 200. She still is on her Apple watch. She obtained an EKG/rhythm strip on her watch which was interpreted as A-fib. I was able to see this but it is only a few beats and it appears to be somewhat irregular but there is a lot of artifact. Patient states he has history of A-fib and it was likely due to a COVID-vaccine. She has not had this since. She is rate controlled on metoprolol and she is also on spironolactone. She has followed up with Dr. Ge. Patient does have history of Holter monitor and echocardiogram which were normal. EKG on my interpretation shows a normal sinus rhythm with a ventricular rate of 75 bpm without sign of ischemic change. Chest x-ray my interpretation shows no acute process. CBC and BMP unremarkable. High-sensitivity troponin 8 and delta troponin 10. Patient still not having any symptoms. We have not caught any runs of A-fib on the monitor or other abnormal rhythms. This point I recommend she follow-up with Dr. Ge. Return precautions are discussed. Impression: 1. palpitations 2. History of A-fib Lab Data Attestation: I reviewed the patient's lab results. Labs: Laboratory Results - last 24 hr 04/28/23 04/28/23 13:20 15:50 WBC 9.5 RBC 5.16 Hgb 15.0 Hct 45.0 MCV 87.2 MCH 29.1 MCHC 33.3 RDW Std Deviation 39.0 RDW Coeff of Sandra 12.2 Plt Count 365 MPV 10.8 Immature Gran % (Auto) 0.500 Neut % (Auto) 65.2 Lymph % (Auto) 24.2 [place] % (Auto) 7.1 Eos % (Auto) 2.4 Baso % (Auto) 0.6 Absolute Neuts (auto) 6.2 Absolute Lymphs (auto) 2.30 Nucleated RBC % 0 Sodium 137 Potassium 4.0 Chloride 108 H Carbon Dioxide 26.0 Anion Gap 3 L BUN 12 Creatinine 0.93 Estim Creat Clear Calc 63.11 Est GFR (MDRD) Af Amer 87 Est GFR (MDRD) Non-Af 72 BUN/Creatinine Ratio 12.9 Glucose 92 Calcium 9.6 Troponin I High Sens 8 10 Radiography Diagnostic Testing: Clinical Impression(s) from Imaging Studies Chest X-Ray 04/28/23 13:14 IMPRESSION: Normal x-ray examination of the chest. Electronically Signed: Ketan Crane MD at 13:33 EST , Discharge Plan Triage Chief Complaint: Palpitations ED Provider: Ramon Barrett Dx/Rx/DC Orders Instructions: ED Palpitations Prescriptions: No Action spironolactone 25 mg tablet 25 mg PO DAILY Qty: 60 metformin 500 mg tablet 500 mg PO BID Qty: 60 Rx Instructions: PCOS albuterol sulfate [Ventolin HFA] 90 mcg/actuation HFA aerosol inhaler 2 puff inhalation Q6H PRN levothyroxine 25 mcg tablet 25 mcg PO DAILY metoprolol succinate 100 mg tablet extended release 24 hr 100 mg PO DAILY Patient Comments: 50 mg in the a.m. and 100 mg in p.m. cetirizine [Zyrtec] 10 mg tablet 10 mg PO DAILY PRN amoxicillin 500 mg tablet 500 mg PO Q12H Qty: 20 0RF losartan 100 mg tablet 100 mg PO DAILY Qty: 90 4RF Primary Care Provider: Nadja Yadav Referrals: Nadja Yadav DO [Primary Care Provider] - Disposition Disposition: Home, Self Care
[2023-04-28 17:40] VITALS: BP 134/81; PULSE 81; RESP 18; O2SAT 97
[2023-04-28 17:58] VITALS: BP 134/77; PULSE 87; RESP 19; O2SAT 99
== END 2023-04-28 18:00 | disposition home or self-care (01) ==
PROVIDERS: Emergency Provider Student in an Organized Health Care Education/Training Program; PCP Family Medicine; Visit Provider Student in an Organized Health Care Education/Training Program
DX: R00.2 Palpitations (principal); I48.91 Unspecified atrial fibrillation; I10 Essential (primary) hypertension; Z79.899 Other long term (current) drug therapy
CPT/HCPCS: 71045; 80048; 84484; 85025; 93005; 99283; A4216

== ENCOUNTER → 2023-05-24 | Outpatient (CLI) | payer OTHER, SELFPAY ==
[2023-05-24 17:24] LABS: Free T3 2.4 pg/mL (2.18-3.98); T4 Free Direct 1.12 ng/dL (0.76-1.46)
== END | disposition home or self-care (01) ==
LOC: LAB 15:19
PROVIDERS: PCP Family Medicine; Referring Provider Family Medicine; Visit Provider Family Medicine
DX: E03.9 Hypothyroidism, unspecified (principal)
CPT/HCPCS: 36415; 84439; 84443; 84481

== ENCOUNTER → 2024-09-03 | Outpatient (CLI) | payer OTHER, SELFPAY ==
[2024-09-03 08:46] LABS: Absolute Lymphocyte Count 3.49 X10^3/uL (0.83-4.51); Absolute Neutrophil Count 8.1 X10^3/uL (2.0-7.7); Basophil# 0.11 X10^3/uL; Basophil% 0.8 % (0-1); Eosinophil# 0.57 X10^3/uL; Eosinophils% 4.3 % (0-5); Hematocrit 42.5 % (37-47); Hemoglobin 14.3 g/dL (12.0-15.0); Lymphocyte # 3.49 X10^3/ul (0.83-4.51); Lymphocyte % 26.5 % (19-41); Mean Corp Hgb Conc 33.6 g/dL (32-36); Mean Corpuscular Hgb 29.9 pg (27.0-32.0); Mean Corpuscular Volume 88.9 fL (81-99); Mean Platelet Vol. 11.2 fl (6.2-12.0); Monocyte# 0.88 X10^3/uL; Monocyte% 6.7 % (0-10); NRBC Flagged by Analyzer 0 % (0-5); Neutrophil # 8.06 X10^3/uL (2.7-7.7); Neutrophil % 61.1 % (47-70); Platelet Count 357 K/mm3 (150-450); RBC Distribution Width CV 12.5 % (11.6-14.6); Red Blood Count 4.78 M/mm3 (4.2-5.4); White Blood Count 13.2 K/mm3 (4.4-11.0)
[2024-09-03 09:40] LABS: ALB/GLOB Ratio 1.3 RATIO (0.9-2.4); AST(SGOT) 20 U/L (<=31); Alanine Aminotransfer ALT/SGPT 19 U/L (<=34); Albumin, Serum 4.1 g/dL (3.5-5.0); Alkaline Phosphatase 67 U/L (35-104); Anion Gap 11 (5-15); BUN 11 mg/dL (4-19); BUN/Creat Ratio 13.6 RATIO (10-20); Calcium,Total 9.3 mg/dL (7.6-11.0); Chloride 104 mmol/L (98-108); Cholesterol 167 mg/dL (<=200); Creatinine, Serum 0.82 mg/dL (0.70-1.20); EST Glomerular Filtration Rate 94 (>60); Ferritin 110 ng/mL (22-378); Free T3 2.9 pg/mL (2.18-3.98); Globulin 3.1 g/dL (2.2-4.2); Glucose 101 mg/dL (70-99); High Density Lipoprotein 50 mg/dL; Low Density Lipoprotein Calc. 89 mg/dL; Potassium 4.2 mmol/L (3.3-5.1); Protein, Total 7.2 g/dL (5.9-8.4); Sodium Level 137 mmol/L (133-145); Total Bilirubin 0.35 mg/dL (0.00-1.30); Triglycerides 142 mg/dL; Very Low Density Lipoprotein 28 mg/dL (5-40); cholesterol:hdl ratio screen 3.37
[2024-09-03 10:35] LABS: Iron 85 ug/dL (50-170)
== END | disposition home or self-care (01) ==
LOC: LAB 07:42
PROVIDERS: PCP Family Medicine; Referring Provider Nurse Practitioner Gerontology; Visit Provider Nurse Practitioner Gerontology
DX: E03.9 Hypothyroidism, unspecified (principal); I10 Essential (primary) hypertension; R53.83 Other fatigue; Z51.81 Encounter for therapeutic drug level monitoring; E78.5 Hyperlipidemia, unspecified
CPT/HCPCS: 36415; 80053; 80061; 82728; 83540; 84439; 84443; 84481; 85025